=== PATIENT | male | born 1970 | race Caucasian/White ===

== ENCOUNTER 2016-06-23 03:29 | Emergency (ER) | payer SELFPAY ==
[~2016-06-23] VITALS: Ht 180.3 cm; Wt 103.0 kg
[~2016-06-23 03:29] MED LIST: ABACAVIR-LAMIV1 EACH PO; BACTRIM DS 8001 TA1 PO; HYDROCODONE BIT1 T11 PO; HYDROXYZINE PAM25 M1 PO; LOSARTAN POTAS100 M1 PO; LOSARTAN POTAS100 MG PO; NATURE'S BLEND F1 MG PO; OMEPRAZOLE20 M2 PO; Orphenadrine C100 MG PO; ULTRAM50 MG PO; VITAMIN B-11 TAB PO; VOLTAREN50 M1 PO
[2016-06-23 04:18] LABS: BASO # 0.1 10*3/uL (0.0-0.1); BASO % 0.6 % (0.0-1.0); EOS # 0.1 10*3/uL (0.0-0.4); EOS % 0.9 % (1.0-4.0); HEMATOCRIT 45.9 % (42.0-52.0); HEMOGLOBIN 14.7 g/dl (14.0-18.0); LYMPH # 2.2 10*3/uL (1.3-4.4); LYMPH % 28.5 % (27.0-41.0); MEAN CELL VOLUME 83.9 fl (80.0-94.0); MEAN CORPUSCULAR HGB 26.9 pg (27.0-31.0); MEAN PLATELET VOLUME 9.6 fl (9.6-12.3); MONO % 12.1 % (3.0-9.0); NEUT # 4.5 10*3/uL (2.3-7.9); NEUT % 57.6 % (47.0-73.0); PLATELET COUNT AUTOMATED 244 10*3/uL (130-400); RED BLOOD COUNT 5.47 10*6/uL (4.50-5.90); RED CELL DISTRI WIDTH 17.7 % (0-14.5); WHITE BLOOD COUNT 7.8 10*3/uL (4.8-10.8)
[2016-06-23 04:28] LABS: BUN 11 mg/dl (7-24); CARBON DIOXIDE 26 mmol/L (21-32); CHLORIDE 108 mmol/L (98-107); EST GLOM FILT AFRICAN AMERICAN > 60 ml/min; GLUCOSE 113 mg/dL (65-99); POTASSIUM 3.8 mmol/L (3.5-5.1); SODIUM 146 mmol/L (136-145)
== END 2016-06-23 05:12 | disposition left against medical advice (07) ==
LOC: ED 03:29
PROVIDERS: Emergency Medicine
DX: R06.02 Shortness of breath (principal); R05 Cough; F17.200 Nicotine dependence, unspecified, uncomplicated; G89.29 Other chronic pain; M54.5 Low back pain; I10 Essential (primary) hypertension; E78.00 Pure hypercholesterolemia, unspecified; F20.9 Schizophrenia, unspecified; Z88.8 Allergy status to other drugs, medicaments and biological substances

== ENCOUNTER 2016-10-22 20:38 | Inpatient (IN) | payer OTHER ==
[~2016-10-22] VITALS: Ht 182.8 cm; Wt 117.1 kg
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
[2016-10-22 00:20] VITALS: BP 115/56
[2016-10-22 20:46] VITALS: BP 151/93
[2016-10-22 21:24] LABS: BASO # 0.1 10*3/uL (0.0-0.1); BASO % 1.4 % (0.0-1.0); EOS # 0.1 10*3/uL (0.0-0.4); EOS % 2.5 % (1.0-4.0); HEMATOCRIT 39.2 % (42.0-52.0); HEMOGLOBIN 12.8 g/dl (14.0-18.0); LYMPH # 2.7 10*3/uL (1.3-4.4); MEAN CELL VOLUME 86.2 fl (80.0-94.0); MEAN CORPUSCULAR HGB 28.1 pg (27.0-31.0); MEAN CORPUSCULAR HGB CONC 32.7 g/dl (33.0-37.0); MONO # 0.8 10*3/uL (0.1-1.0); MONO % 14.3 % (3.0-9.0); NEUT % 34.4 % (47.0-73.0); PLATELET COUNT AUTOMATED 168 10*3/uL (130-400); RED BLOOD COUNT 4.55 10*6/uL (4.50-5.90); RED CELL DISTRI WIDTH 17.3 % (0-14.5); WHITE BLOOD COUNT 5.7 10*3/uL (4.8-10.8)
[2016-10-22 21:39] LABS: ALBUMIN 3.8 gm/dl (3.1-4.5); ALKALINE PHOSPHATASE 86 U/L (45-117); BILIRUBIN, TOTAL 0.3 mg/dl (0.2-1.0); BUN 8 mg/dl (7-24); CARBON DIOXIDE 27 mmol/L (21-32); CHLORIDE 107 mmol/L (98-107); EST GLOM FILT AFRICAN AMERICAN > 60 ml/min; GLUCOSE 107 mg/dL (65-99); MAGNESIUM 2.3 mg/dL (1.5-2.1); POTASSIUM 3.8 mmol/L (3.5-5.1); PROTHROMBIN TIME 10.1 SECONDS (9.0-12.4); SGOT/AST 206 IU/L (3-35); SGPT/ALT 155 U/L (12-78); SODIUM 145 mmol/L (136-145); TOTAL PROTEIN 8.1 gm/dL (6.4-8.2)
[2016-10-23] VITALS (7 sets, daily range): BP systolic 114–160; BP diastolic 70–102
[2016-10-23 00:35] LABS: CKMB 1.2 ng/ml (0.5-3.6); CPK 246 U/L (39-308)
[2016-10-23 00:36] LABS: TROPONIN I < 0.015 ng/ml (<0.045)
[2016-10-23 06:09] LABS: HEMATOCRIT 38.3 % (42.0-52.0); HEMOGLOBIN 12.2 g/dl (14.0-18.0); MEAN CELL VOLUME 88.5 fl (80.0-94.0); MEAN CORPUSCULAR HGB 28.2 pg (27.0-31.0); MEAN CORPUSCULAR HGB CONC 31.9 g/dl (33.0-37.0); PLATELET COUNT AUTOMATED 146 10*3/uL (130-400); RED BLOOD COUNT 4.33 10*6/uL (4.50-5.90); RED CELL DISTRI WIDTH 17.4 % (0-14.5); WHITE BLOOD COUNT 3.8 10*3/uL (4.8-10.8)
[2016-10-23 06:18] LABS: CKMB 0.9 ng/ml (0.5-3.6); CPK 244 U/L (39-308)
[2016-10-23 06:19] LABS: TROPONIN I < 0.015 ng/ml (<0.045)
[2016-10-23 06:20] LABS: HEMOGLOBIN A1c 5.3 % (4.8-5.6)
[2016-10-23 06:22] LABS: CHLORIDE 112 mmol/L (98-107); POTASSIUM 3.9 mmol/L (3.5-5.1); SODIUM 148 mmol/L (136-145)
[2016-10-23 06:30] LABS: PROTHROMBIN TIME 10.7 SECONDS (9.0-12.4)
[2016-10-23 06:33] LABS: ATYPICAL LYMPHS 1 % (0-0); BASOPHIL # 0.1 10*3/uL (0-0.1); BASOPHILS 3 % (0-1); EOSINOPHILS 1 % (1-4); LYMPHOCYTE # 1.9 10*3/uL (1.3-4.4); MONOCYTE # 0.4 10*3/uL (0.1-1.0); NEUTROPHIL # 1.3 10*3/uL (2.3-7.9); NEUTROPHILS 34 % (47-73); TOTAL CELLS COUNTED 100 #CELLS
[2016-10-23 06:34] LABS: BUN 8 mg/dl (7-24); CARBON DIOXIDE 26 mmol/L (21-32); CHOLESTEROL 203 mg/dL (<200); EST GLOM FILT AFRICAN AMERICAN > 60 ml/min; GLUCOSE 84 mg/dL (65-99); HDL CHOLESTEROL 41 mg/dl (40-60); LDL CHOLESTEROL 98 mg/dL (9-159); MAGNESIUM 2.3 mg/dL (1.5-2.1); PHOSPHOROUS 3.7 mg/dL (2.5-4.9); PLATELET SUFFICIENCY NORMAL (NORMAL); TRIGLYCERIDES 322 mg/dl (<150); VLDL CHOLESTEROL 64 mg/dL (6-40)
[2016-10-23 07:11] LABS: FOLIC ACID > 24.00 ng/mL (>5.38)
[2016-10-23 12:47] LABS: CKMB 0.8 ng/ml (0.5-3.6); CPK 263 U/L (39-308); TROPONIN I < 0.015 ng/ml (<0.045)
[2016-10-23 20:00] LABS: BILIRUBIN NEGATIVE (NEGATIVE); BLOOD NEGATIVE (NEGATIVE); CLARITY SL CLOUDY (CLEAR); COLOR YELLOW (YELLOW); GLUCOSE NEGATIVE (NEGATIVE); KETONE NEGATIVE (NEGATIVE); LEUKO ESTERASE NEGATIVE (NEGATIVE); NITRITE NEGATIVE (NEGATIVE); PH 6.5 (5.0-9.0); PROTEIN NEGATIVE (NEGATIVE); SPECIFIC GRAVITY <= 1.005 (1.005-1.030); UROBILINOGEN 0.2 E.U./dl (0.2-1.0)
[2016-10-23 20:08] LABS: URINE AMPHETAMINES < 1000 (1000ng/ml); URINE BARBITURATES < 200 (200ng/ml); URINE COCAINE < 300 (300ng/ml)
[2016-10-23 20:14] LABS: EPITHELIAL CELLS 0-2; RBC 0-2 rbc/hpf (0-2); WBC 0-2 wbc/hpf (0-5)
[2016-10-23 20:18] LABS: BACTERIA 1+; URINE REFLEX COMMENT NO (NO)
[2016-10-24] VITALS: BP 150/100
[2016-10-24 04:00] VITALS: BP 150/90
[2016-10-24 08:00] VITALS: BP 157/100
[2016-10-24 12:00] VITALS: BP 151/107
[2016-10-24 16:00] VITALS: BP 134/101
[2016-10-25] VITALS: BP 130/60; BP 145/101
[2016-10-25 06:58] LABS: EOS # 0.2 10*3/uL (0.0-0.4); EOS % 4.3 % (1.0-4.0); HEMATOCRIT 39.4 % (42.0-52.0); HEMOGLOBIN 12.7 g/dl (14.0-18.0); LYMPH # 1.2 10*3/uL (1.3-4.4); MEAN CELL VOLUME 87.8 fl (80.0-94.0); MEAN CORPUSCULAR HGB 28.3 pg (27.0-31.0); MEAN CORPUSCULAR HGB CONC 32.2 g/dl (33.0-37.0); MEAN PLATELET VOLUME 9.4 fl (9.6-12.3); MONO # 0.5 10*3/uL (0.1-1.0); MONO % 11.7 % (3.0-9.0); NEUT # 2.3 10*3/uL (2.3-7.9); NEUT % 54.8 % (47.0-73.0); PLATELET COUNT AUTOMATED 135 10*3/uL (130-400); RED BLOOD COUNT 4.49 10*6/uL (4.50-5.90); RED CELL DISTRI WIDTH 16.4 % (0-14.5); WHITE BLOOD COUNT 4.2 10*3/uL (4.8-10.8)
[2016-10-25 07:29] LABS: ALBUMIN 3.4 gm/dl (3.1-4.5); ALKALINE PHOSPHATASE 86 U/L (45-117); BILIRUBIN, TOTAL 0.4 mg/dl (0.2-1.0); BUN 14 mg/dl (7-24); CARBON DIOXIDE 25 mmol/L (21-32); CHLORIDE 104 mmol/L (98-107); EST GLOM FILT AFRICAN AMERICAN > 60 ml/min; GLUCOSE 95 mg/dL (65-99); POTASSIUM 3.9 mmol/L (3.5-5.1); SGOT/AST 155 IU/L (3-35); SGPT/ALT 140 U/L (12-78); SODIUM 139 mmol/L (136-145); TOTAL PROTEIN 7.6 gm/dL (6.4-8.2)
[2016-10-25 08:00] VITALS: BP 149/99
[2016-10-25] MEDS ORDERED: THERA TABS1 TAB PO (10:44)
[2016-10-25] MEDS ORDERED: VITAMIN B-11 TAB PO (10:44)
[2016-10-25] MEDS ORDERED: NATURE'S BLEND F1 MG PO (10:44)
[2016-10-25] MEDS ORDERED: D-1000 185 MG-11 TAB PO (10:44)
[2016-10-25 12:00] VITALS: BP 137/88
[2016-10-25 16:00] VITALS: BP 142/100
[2016-10-25 20:00] VITALS: BP 133/91
[2016-10-26] VITALS: BP 127/90
[2016-10-26 08:00] VITALS: BP 150/88
[2016-10-26 12:00] VITALS: BP 142/83
[2016-10-26] MEDS ORDERED: ATARAX,VISTARIL50 MG PO (12:03)
[2016-10-26] MEDS ORDERED: ULTRAM50 MG PO (12:05)
== END 2016-10-26 12:33 | disposition home or self-care (01) | DRG 896 ==
LOC: ED 20:38 → 5E 22:53 → EDHOLD 22:53 → 5E 23:20
PROVIDERS: Emergency Medicine Emergency Medical Services; Internal Medicine Hospice and Palliative Medicine; Student in an Organized Health Care Education/Training Program
PROC: 3E0U33Z Introduction of Anti-inflammatory into Joints, Percutaneous Approach (ICD-10-PCS; principal; 2016-10-25)
DX: F10.120 Alcohol abuse with intoxication, uncomplicated (principal); E43 Unspecified severe protein-calorie malnutrition; E87.0 Hyperosmolality and hypernatremia; F33.9 Major depressive disorder, recurrent, unspecified; M25.561 Pain in right knee; K70.10 Alcoholic hepatitis without ascites; E83.41 Hypermagnesemia; E83.51 Hypocalcemia; M54.5 Low back pain; E55.9 Vitamin D deficiency, unspecified; R74.0 Nonspecific elevation of levels of transaminase and lactic acid dehydrogenase [LDH]; D64.9 Anemia, unspecified; R00.0 Tachycardia, unspecified; Y90.8 Blood alcohol level of 240 mg/100 ml or more; D72.819 Decreased white blood cell count, unspecified; I10 Essential (primary) hypertension; F20.9 Schizophrenia, unspecified; E78.00 Pure hypercholesterolemia, unspecified; F17.210 Nicotine dependence, cigarettes, uncomplicated; E78.1 Pure hyperglyceridemia; E66.09 Other obesity due to excess calories; Z87.81 Personal history of (healed) traumatic fracture; S89.91XD Unspecified injury of right lower leg, subsequent encounter; Z68.30 Body mass index [BMI] 30.0-30.9, adult

== ENCOUNTER 2016-10-27 01:14 | Emergency (ER) | payer OTHER ==
[~2016-10-27] VITALS: Ht 180.3 cm; Wt 105.7 kg
[~2016-10-27 01:14] MED LIST changes: +ATARAX,VISTARIL50 MG PO; +D-1000 185 MG-11 TAB PO; +THERA TABS1 TAB PO
== END 2016-10-27 02:45 | disposition home or self-care (01) ==
LOC: ED 01:14
DX: S01.112A Laceration without foreign body of left eyelid and periocular area, initial encounter (principal); S01.412A Laceration without foreign body of left cheek and temporomandibular area, initial encounter; S01.01XA Laceration without foreign body of scalp, initial encounter; F17.200 Nicotine dependence, unspecified, uncomplicated; I10 Essential (primary) hypertension; V99.XXXA Unspecified transport accident, initial encounter; Y93.89 Activity, other specified; Y92.59 Other trade areas as the place of occurrence of the external cause; Y99.0 Civilian activity done for income or pay

== ENCOUNTER 2017-01-08 23:11 | Emergency (ER) | payer OTHER ==
[~2017-01-08] VITALS: Ht 180.3 cm; Wt 104.3 kg
[2017-01-09] MEDS ORDERED: NAPROSYN500 MG PO (00:23)
[2017-01-09] MEDS ORDERED: HYDROCODONE BIT1 T11 PO (00:23)
== END 2017-01-09 01:04 | disposition home or self-care (01) ==
LOC: ED 23:11
DX: M19.071 Primary osteoarthritis, right ankle and foot (principal); I10 Essential (primary) hypertension; E66.9 Obesity, unspecified; F17.200 Nicotine dependence, unspecified, uncomplicated; Z98.890 Other specified postprocedural states; Z79.899 Other long term (current) drug therapy

== ENCOUNTER 2017-02-01 12:03 | Emergency (ER) | payer OTHER ==
[~2017-02-01] VITALS: Ht 180.3 cm; Wt 107.0 kg
[~2017-02-01 12:03] MED LIST changes: +NAPROSYN500 MG PO
[2017-02-01] MEDS ORDERED: 'PARAFON FORTE500 M1 PO (13:01)
== END 2017-02-01 14:12 | disposition home or self-care (01) ==
LOC: ED 12:03
DX: S39.013A Strain of muscle, fascia and tendon of pelvis, initial encounter (principal); I10 Essential (primary) hypertension; E78.00 Pure hypercholesterolemia, unspecified; F17.200 Nicotine dependence, unspecified, uncomplicated; Z79.899 Other long term (current) drug therapy; W18.40XA Slipping, tripping and stumbling without falling, unspecified, initial encounter; Y93.89 Activity, other specified; Y92.89 Other specified places as the place of occurrence of the external cause; Y99.8 Other external cause status

== ENCOUNTER 2017-02-09 12:52 | Emergency (ER) | payer OTHER ==
[~2017-02-09] VITALS: Ht 180.3 cm; Wt 108.0 kg
[~2017-02-09 12:52] MED LIST changes: +'PARAFON FORTE500 M1 PO
[2017-02-09] MEDS ORDERED: toradol PO (13:21)
== END 2017-02-09 14:38 | disposition home or self-care (01) ==
LOC: ED 12:52
DX: G89.18 Other acute postprocedural pain (principal); R03.0 Elevated blood-pressure reading, without diagnosis of hypertension; F17.200 Nicotine dependence, unspecified, uncomplicated; Z79.899 Other long term (current) drug therapy

== ENCOUNTER 2017-02-16 00:37 | Emergency (ER) | payer OTHER ==
[~2017-02-16 00:37] MED LIST changes: +toradol PO
== END 2017-02-16 03:30 | disposition short-term general hospital (02) ==
LOC: ED 00:37
DX: S62.394A Other fracture of fourth metacarpal bone, right hand, initial encounter for closed fracture (principal); I10 Essential (primary) hypertension; E78.2 Mixed hyperlipidemia; F17.200 Nicotine dependence, unspecified, uncomplicated; X58.XXXA Exposure to other specified factors, initial encounter; Y93.89 Activity, other specified; Y92.89 Other specified places as the place of occurrence of the external cause; Y99.8 Other external cause status

== ENCOUNTER 2017-03-15 11:10 | Emergency (ER) | payer OTHER ==
[~2017-03-15] VITALS: Ht 180.3 cm; Wt 108.0 kg
[2017-03-15 11:51] LABS: BASO # 0.1 10*3/uL (0.0-0.1); EOS # 0.2 10*3/uL (0.0-0.4); EOS % 2.5 % (1.0-4.0); HEMATOCRIT 44.6 % (42.0-52.0); HEMOGLOBIN 14.7 g/dl (14.0-18.0); LYMPH # 2.1 10*3/uL (1.3-4.4); LYMPH % 34.2 % (27.0-41.0); MEAN CELL VOLUME 88.1 fl (80.0-94.0); MEAN CORPUSCULAR HGB 29.1 pg (27.0-31.0); MEAN PLATELET VOLUME 9.9 fl (9.6-12.3); MONO # 0.7 10*3/uL (0.1-1.0); MONO % 11.3 % (3.0-9.0); NEUT # 3.1 10*3/uL (2.3-7.9); NEUT % 50.7 % (47.0-73.0); PLATELET COUNT AUTOMATED 194 10*3/uL (130-400); RED BLOOD COUNT 5.06 10*6/uL (4.50-5.90); RED CELL DISTRI WIDTH 16.8 % (0-14.5); WHITE BLOOD COUNT 6.1 10*3/uL (4.8-10.8)
[2017-03-15 12:12] LABS: ALBUMIN 3.6 gm/dl (3.1-4.5); ALKALINE PHOSPHATASE 102 U/L (45-117); BUN 10 mg/dl (7-24); CHLORIDE 110 mmol/L (98-107); CREATININE 0.77 mg/dL (0.70-1.30); POTASSIUM 3.9 mmol/L (3.5-5.1); SGOT/AST 189 IU/L (3-35); SGPT/ALT 230 U/L (12-78); SODIUM 142 mmol/L (136-145)
[2017-03-15 13:21] LABS: BILIRUBIN NEGATIVE (NEGATIVE); BLOOD NEGATIVE (NEGATIVE); CLARITY CLEAR (CLEAR); COLOR YELLOW (YELLOW); GLUCOSE NEGATIVE (NEGATIVE); KETONE NEGATIVE (NEGATIVE); LEUKO ESTERASE NEGATIVE (NEGATIVE); NITRITE NEGATIVE (NEGATIVE); SPECIFIC GRAVITY <= 1.005 (1.005-1.030); UROBILINOGEN 0.2 E.U./dl (0.2-1.0)
[2017-03-15 13:30] LABS: URINE AMPHETAMINES < 1000 (1000ng/ml); URINE BARBITURATES < 200 (200ng/ml); URINE BENZODIAZEPINES < 200 (200ng/ml); URINE CANNABINOIDS (THC) < 50 (50ng/ml); URINE COCAINE < 300 (300ng/ml); URINE METHADONE < 300 (300ng/ml); URINE OPIATES < 300 (300ng/ml); URINE PHENCYCLIDINE < 25 (25ng/ml)
[2017-03-15] MEDS ORDERED: KEPPRA500 MG PO (13:33)
== END 2017-03-15 15:51 | disposition left against medical advice (07) ==
LOC: ED 11:10
PROVIDERS: Emergency Medicine
DX: G40.909 Epilepsy, unspecified, not intractable, without status epilepticus (principal); F10.229 Alcohol dependence with intoxication, unspecified; G89.29 Other chronic pain; M25.561 Pain in right knee; E83.51 Hypocalcemia; K70.9 Alcoholic liver disease, unspecified; I10 Essential (primary) hypertension; E78.00 Pure hypercholesterolemia, unspecified; F17.200 Nicotine dependence, unspecified, uncomplicated

== ENCOUNTER → 2017-03-20 | Outpatient (CLI) | payer OTHER ==
[~2017-03-20] MED LIST changes: +KEPPRA500 MG PO; +LISINOPRIL20 MG PO; +Motrin,Rufen800 MG PO; +PERCOCET 5-3251 EACH PO
== END | disposition home or self-care (01) ==
LOC: ORTHO 01:00
DX: S62.316D Displaced fracture of base of fifth metacarpal bone, right hand, subsequent encounter for fracture with routine healing (principal); X58.XXXD Exposure to other specified factors, subsequent encounter

== ENCOUNTER 2017-03-21 21:19 | Inpatient (IN) | payer OTHER ==
[~2017-03-21] VITALS: Ht 180.3 cm; Wt 111.2 kg
[2017-03-21] VITALS (7 sets, daily range): BP systolic 135–159; BP diastolic 88–102
[~2017-03-21 21:19] MED LIST changes: -LISINOPRIL20 MG PO; -Motrin,Rufen800 MG PO; -PERCOCET 5-3251 EACH PO
[2017-03-21 22:06] LABS: BASO # 0.1 10*3/uL (0.0-0.1); BASO % 1.1 % (0.0-1.0); EOS # 0.2 10*3/uL (0.0-0.4); EOS % 2.2 % (1.0-4.0); HEMATOCRIT 44.2 % (42.0-52.0); HEMOGLOBIN 14.6 g/dl (14.0-18.0); LYMPH # 2.4 10*3/uL (1.3-4.4); MEAN CELL VOLUME 87.2 fl (80.0-94.0); MEAN CORPUSCULAR HGB 28.8 pg (27.0-31.0); MEAN PLATELET VOLUME 9.3 fl (9.6-12.3); MONO # 0.9 10*3/uL (0.1-1.0); NEUT # 3.7 10*3/uL (2.3-7.9); NEUT % 50.4 % (47.0-73.0); PLATELET COUNT AUTOMATED 204 10*3/uL (130-400); RED BLOOD COUNT 5.07 10*6/uL (4.50-5.90); RED CELL DISTRI WIDTH 17.5 % (0-14.5); WHITE BLOOD COUNT 7.3 10*3/uL (4.8-10.8)
[2017-03-21 22:21] LABS: ALBUMIN 3.7 gm/dl (3.1-4.5); ALKALINE PHOSPHATASE 97 U/L (45-117); BUN 8 mg/dl (7-24); CHLORIDE 105 mmol/L (98-107); CREATININE 0.79 mg/dL (0.70-1.30); POTASSIUM 3.3 mmol/L (3.5-5.1); SGOT/AST 283 IU/L (3-35); SGPT/ALT 280 U/L (12-78); SODIUM 140 mmol/L (136-145); TOTAL PROTEIN 8.2 gm/dL (6.4-8.2)
[2017-03-21 22:22] LABS: BILIRUBIN NEGATIVE (NEGATIVE); BLOOD NEGATIVE (NEGATIVE); CLARITY CLEAR (CLEAR); COLOR YELLOW (YELLOW); GLUCOSE NEGATIVE (NEGATIVE); KETONE NEGATIVE (NEGATIVE); LEUKO ESTERASE NEGATIVE (NEGATIVE); NITRITE NEGATIVE (NEGATIVE); SPECIFIC GRAVITY <= 1.005 (1.005-1.030); UROBILINOGEN 0.2 E.U./dl (0.2-1.0)
[2017-03-21 22:26] LABS: ACETAMINOPHEN (TYLENOL) < 2.0 ug/ml (10-30)
[2017-03-21 22:30] LABS: BACTERIA TRACE; EPITHELIAL CELLS 0-3
[2017-03-21 22:31] LABS: URINE AMPHETAMINES < 1000 (1000ng/ml); URINE BARBITURATES < 200 (200ng/ml); URINE BENZODIAZEPINES < 200 (200ng/ml); URINE CANNABINOIDS (THC) < 50 (50ng/ml); URINE COCAINE < 300 (300ng/ml); URINE METHADONE < 300 (300ng/ml); URINE OPIATES < 300 (300ng/ml)
[2017-03-21 22:32] LABS: URINE PHENCYCLIDINE < 25 (25ng/ml)
[2017-03-22] VITALS (8 sets, daily range): BP systolic 100–158; BP diastolic 65–120
--- NOTE | 2017-03-22 00:35 | NUR ---
PATIENT REPORTS SOME RELIEF FROM HIS PAIN AND THAT HE IS MUCH CALMER.
--- NOTE | 2017-03-22 00:40 | NUR ---
A 46, admitted to ICCU, under the services of NATHALIA Ayoub DO with a diagnosis of ALCOHOL INTOXICATION. Chief complaint is R KNEE PAIN. Patient arrived via stretcher from ER. Monitor applied. Initial assessment completed. Vital signs taken and recorded. NATHALIA AYOUB DO notified of admission to the unit. Orders received. See assessment for past medical history, medications and allergies. Patient and/or family oriented to unit. [facility] ICCU visitation policy reviewed. Clothing/patient valuable form completed. MITCHEL WRAY
--- NOTE | 2017-03-22 01:22 | NUR ---
MEDICATED WITH PRN ROBAXIN AND VISTARIL PER ORDERS.
--- NOTE | 2017-03-22 01:40 | NUR ---
MEDICATED WITH IV LABETOLOL.
--- NOTE | 2017-03-22 01:52 | NUR ---
MEDICATED WITH PRN TRAZADONE.
--- NOTE | 2017-03-22 03:00 | NUR ---
LABETOLOL,TRAZADONE,ROBAXIN,VISTARIL EFFECTIVE. BP 113/81. PATIENT SLEEPING.
--- NOTE | 2017-03-22 04:36 | NUR ---
MEDICATED WITH PRN TORODOL PER ORDER AND REQUEST FOR C/O R KNEE PAIN.
--- NOTE | 2017-03-22 09:23 | NUR ---
Awake and alert, 0917 Medicated for c/o pain to Right knee scale 9/10. AM meds given . Sidelying and co-operative no s/s of withdrawl noted.
--- NOTE | 2017-03-22 11:09 | NUR ---
States pain has eased but is still present. Informed that IV med was available. Stated that he was OK for now.
--- NOTE | 2017-03-22 13:46 | NUR ---
Dr. Burr in to [facility]. Ordered tordol dose for now. Offered to pt. who stated he would take it later. Transferred to [facility] via bed. Familyin and aware of transfer.
--- NOTE | 2017-03-22 14:40 | NUR ---
PATIENT WAS GIVEN IV TORODOL AND ROBAXON PER PATIENT COMPLAINT OF KNEE PAIN RATED AN 8/10 ON THE PAIN SCALE. WILL CONTINUE TO MONITOR AND RE-EVALUATE.
--- NOTE | 2017-03-22 15:00 | NUR ---
PAIN MEDICATION HAS BEEN EFFECTIVE EVIDENCE BY PATIENT VERBALIZING A PAIN LEVEL OF 3/10. PATIENT IS NOW RESTING COMFORTABLY IN BED. WILL CONTINUE TO MONITOR.
--- NOTE | 2017-03-22 19:50 | NUR ---
PT. AWAKE, ALERT AND ORIENTED X 3 UPON ENTERING ROOM. PT. HX. OF SEIZURES WITH SEIZURE PRECAUTIONS AND PADDED RAILS ORDERED. PADDED RAILS IN PLACE WITH PADDED TONGUE BLADE AT BEDSIDE. PT. C/O RT. KNEE PAIN 10/10 UNRELIEVED BY PREVIOUS MEDICATION FOR PAIN. CALL LIGHT WITHIN REACH, BED IN LOWEST POSITION, WHEELS LOCKED. SEE SHIFT ASSESSMENT.
--- NOTE | 2017-03-22 20:00 | NUR ---
SPOKE WITH DR. GONZALEZ AT THIS TIME IN REGARDS TO PTS. REQUEST FOR PAIN MEDICATION FOR RT. KNEE PAIN 03/25 THAT IS UNRELIEVED BY CURRENT TREATMENT. DR. GONZALEZ STATED TO PUT IN AN ORDER FOR MORPHINE 4MG Q4HR PRN.
--- NOTE | 2017-03-22 20:25 | NUR ---
PT. GIVEN MORPHINE 4 MG AT THIS TIME. PT. ADVISED TO USE CALL LIGHT FOR ANY ADVERSE REACTION. WILL MONITOR EFFECTIVENESS.
--- NOTE | 2017-03-22 21:38 | NUR ---
PT. RE-ASSESSED FOR EFFECTIVENESS OF MORPHINE. PT. STATED PAIN OF 4/10, BUT NOTED IT WORKED BETTER THAN PREVIOUS MEDICATION.
[2017-03-23] VITALS: BP 127/77
--- NOTE | 2017-03-23 00:42 | NUR ---
PT. GIVEN MORPHINE AT THIS TIME FOR PAIN 01/23. PT. STATED INITIAL DOSE OF MORPHINE HELPED WITH PAIN, AND HE WAS ABLE TO SLEEP FOR 3-4 HOURS. WILL MONITOR EFFECTIVENESS.
--- NOTE | 2017-03-23 01:30 | NUR ---
PT. RE-EVALUATED FOR EFFECTIVENESS OF MORPHINE. PT. SLEEPING, RESPIRATIONS EASY, REGULAR, NO-DISTRESS.
[2017-03-23 06:17] LABS: EOS # 0.2 10*3/uL (0.0-0.4); EOS % 3.6 % (1.0-4.0); HEMATOCRIT 41.9 % (42.0-52.0); HEMOGLOBIN 13.5 g/dl (14.0-18.0); LYMPH # 1.1 10*3/uL (1.3-4.4); LYMPH % 27.2 % (27.0-41.0); MEAN CELL VOLUME 89.1 fl (80.0-94.0); MEAN CORPUSCULAR HGB 28.7 pg (27.0-31.0); MEAN CORPUSCULAR HGB CONC 32.2 g/dl (33.0-37.0); MEAN PLATELET VOLUME 10.3 fl (9.6-12.3); MONO # 0.4 10*3/uL (0.1-1.0); MONO % 10.1 % (3.0-9.0); NEUT # 2.4 10*3/uL (2.3-7.9); NEUT % 57.6 % (47.0-73.0); RED CELL DISTRI WIDTH 17.2 % (0-14.5); WHITE BLOOD COUNT 4.2 10*3/uL (4.8-10.8)
[2017-03-23 06:26] LABS: BUN 9 mg/dl (7-24); CHLORIDE 108 mmol/L (98-107); MAGNESIUM 1.7 mg/dL (1.5-2.1); POTASSIUM 3.8 mmol/L (3.5-5.1); SGOT/AST 200 IU/L (3-35); SGPT/ALT 214 U/L (12-78); SODIUM 140 mmol/L (136-145)
[2017-03-23 06:35] LABS: PLATELET COUNT AUTOMATED 142 10*3/uL (130-400)
[2017-03-23 06:37] LABS: ALKALINE PHOSPHATASE 86 U/L (45-117); PHOSPHOROUS 3.7 mg/dL (2.5-4.9); TOTAL PROTEIN 6.8 gm/dL (6.4-8.2)
[2017-03-23 12:00] VITALS: BP 138/92
[2017-03-23 16:00] VITALS: BP 140/92
[2017-03-23 20:00] VITALS: BP 124/87
--- NOTE | 2017-03-23 21:53 | NUR ---
PATIENT HAS COMPLAINT OF RT KNEE PAIN RATES 10/10. MORPHINE GIVEN. WILL REASSESS.
--- NOTE | 2017-03-23 23:30 | NUR ---
Medicated with Trazodone po prn for help with sleep. Will monitor effectiveness. Call light within reach.
[2017-03-24] VITALS: BP 133/88
--- NOTE | 2017-03-24 00:24 | NUR ---
Patient resting quietly in bed with eyes closed. Trazodone effective. Will continue to monitor. Call light within reach.
--- NOTE | 2017-03-24 00:47 | NUR ---
24 HR chart check completed.
--- NOTE | 2017-03-24 04:01 | NUR ---
Medicated with Morphine IV prn for knee pain rating 10/10. Will monitor effectiveness. Call light within reach.
--- NOTE | 2017-03-24 05:00 | NUR ---
Patient resting quietly in bed with eyes closed. Morphine effective. Will continue to monitor. Call light within reach. M
[2017-03-24 06:57] LABS: SGOT/AST 200 IU/L (3-35); SGPT/ALT 220 U/L (12-78)
[2017-03-24 08:00] VITALS: BP 138/76
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
[2017-03-24 12:00] VITALS: BP 114/57
--- NOTE | 2017-03-24 14:48 | NUR ---
SETTER MACHINE SPOKE WITH PATIENT. PATIENT STATED THAT HE HAS SLOWED DOWN ON HIS DRINKING. PATIENT WAS REFERRED TO AA MEETINGS. OSBALDO TRINIDAD B.A. SETTER MACHINE
[2017-03-24 16:00] VITALS: BP 104/68
--- NOTE | 2017-03-24 18:28 | NUR ---
Patient resting quietly with no c/o discomfort. Respirations easy and regular. Vital signs stable. No overt distress. LEONCIO ANTONIO R
--- NOTE | 2017-03-24 19:30 | NUR ---
ASSUMED CARE OF PT AT THIS TIME, RESPS EASY AND NONLABORED WITH NO S/S OF DISTRESS, CALL LIGHT WITH IN REACH
[2017-03-24 20:00] VITALS: BP 117/76
[2017-03-25] VITALS: BP 122/77
--- NOTE | 2017-03-25 05:17 | NUR ---
PT REPORTS PAIN IN THE RIGHT KNEE REQUESTING AND ADMINSITERED MORPHINE 4MG IV PRN ORDERED, RATES PAIN 8/10, WILL MONITOR EFFECTS
[2017-03-25 05:57] LABS: BASO % 0.7 % (0.0-1.0); EOS # 0.2 10*3/uL (0.0-0.4); EOS % 3.9 % (1.0-4.0); HEMATOCRIT 43.5 % (42.0-52.0); HEMOGLOBIN 14.3 g/dl (14.0-18.0); LYMPH # 1.7 10*3/uL (1.3-4.4); LYMPH % 28.9 % (27.0-41.0); MEAN CELL VOLUME 89.7 fl (80.0-94.0); MEAN CORPUSCULAR HGB 29.5 pg (27.0-31.0); MEAN CORPUSCULAR HGB CONC 32.9 g/dl (33.0-37.0); MEAN PLATELET VOLUME 10.4 fl (9.6-12.3); MONO # 0.8 10*3/uL (0.1-1.0); NEUT % 51.8 % (47.0-73.0); PLATELET COUNT AUTOMATED 149 10*3/uL (130-400); RED BLOOD COUNT 4.85 10*6/uL (4.50-5.90); WHITE BLOOD COUNT 5.9 10*3/uL (4.8-10.8)
[2017-03-25 06:07] LABS: BUN 12 mg/dl (7-24); CHLORIDE 103 mmol/L (98-107); CREATININE 0.74 mg/dL (0.70-1.30); POTASSIUM 3.8 mmol/L (3.5-5.1); SODIUM 138 mmol/L (136-145)
--- NOTE | 2017-03-25 06:07 | NUR ---
PT REPORTS DECREASED PAIN LEVEL AT THIS TIME, PRN MORPHINE EFFECTIVE RATES PAIN 4/10
[2017-03-25 08:00] VITALS: BP 126/81
--- NOTE | 2017-03-25 08:00 | NUR ---
IN BED RESTING QUIETLY. AWAKENS TO VOICE. NO S/S OF DISTRESS. WILL CONT TO MONITOR. CALL LIGHT IN REACH. SEE ASSESS.
--- NOTE | 2017-03-25 09:50 | NUR ---
MORPHINE GIVEN FOR C/O PAIN OF 10/10 TO RIGHT KNEE. WILL CONT TO MONITOR. CALL LIGHT IN REACH.
--- NOTE | 2017-03-25 10:22 | NUR ---
KNEE IMMOBILIZER APPLIED ORDERED TO RIGHT KNEE.
--- NOTE | 2017-03-25 10:29 | NUR ---
PHYSICAL THERAPY Therapy in this AM and Mr Forrester wanting his pain meds first. He ask if i could come back around 12:00 noon today. BRENTON MOE IMAGING TECHNICIAN.
--- NOTE | 2017-03-25 10:50 | NUR ---
IV MORPHINE EFF AT THIS TIME PER PT. WILL CONT TO MONITOR. CALL LIGHT IN REACH.
--- NOTE | 2017-03-25 12:14 | NUR ---
PHYSICAL THERAPY Mr Forrester seen this PM 1:1 for his therapy session, Pt was supine in bed. I ask if he was doing his right leg Ex and he said that it was to painful and he's not doing them. All transfers were supervision X 1, no LOB. Gait with just one crutch on Pt's right side, said thats the best for him. Pt is WBAT right LE. Gait total 80' X 1, supervision X 1, and verbal cues for Syd to slow down his gait for his gait safety that he gaits to fast for his safety, lincoln thinking he is going to do what he wants to do. Pt back supine in bed, call light and phone, and said that he does not have MRSA why the mask. BRENTON MOE MECHANICAL DESIGN ENGINEER [employer]ODUCTS.
--- NOTE | 2017-03-25 13:05 | NUR ---
IV MORPHINE EFF FOR RIGHT KNEE PAIN PER PT. WILL CONT TO MONITOR.
--- NOTE | 2017-03-25 14:10 | NUR ---
IV MORPHINE GIVEN FOR C/O PAIN TO RIGHT KNEE OF 02/23. WILL CONT TO MONITOR. CALL LIGHT IN REACH.
[2017-03-25 16:00] VITALS: BP 103/66
--- NOTE | 2017-03-25 19:30 | NUR ---
ASSSUMED CARE OF PT AT THIS TIME, RESPS EASY AND NONLABORED WITH NO S/S OF DISTRESS CALL LIGHT WITH IN REACH
--- NOTE | 2017-03-25 19:57 | NUR ---
PT C/O PAIN IN RIGHT KNEE RATES PAIN 8/10, REQUESTED AND ADMINISTERED MORPHINE 4MG IV PRN PER ORDERS, WILL MONITOR EFFECTS
[2017-03-25 20:00] VITALS: BP 113/78
--- NOTE | 2017-03-25 20:57 | NUR ---
REPORTS THAT PAIN HAS DECREASED IN THE RIGHT KNEE, PRN MORPHINE 4MG EFFECTIVE AT THIS TIME.
[2017-03-26] VITALS: BP 115/86
--- NOTE | 2017-03-26 01:41 | NUR ---
PT REPORTS PAIN IN THE RIGHT KNEE, AND REQUESTED PRN PAIN MEDICATION, MORPHINE 4MG GIVEN ORDERED WILL MONITOR EFFECTS
--- NOTE | 2017-03-26 02:20 | NUR ---
PRN PAIN MEDICATION EFFECTIVE AT THIS TIME, PT REPORTS DECREASED PAIN LEVEL IN RIGHT KNEE, IMMOBILIZER IN PLACE, AND PT USING ICE PACKS
[2017-03-26 08:00] VITALS: BP 122/83
--- NOTE | 2017-03-26 08:39 | NUR ---
PT RESTING IN BED, PT C/O RIGHT KNEE PAIN. PT MEDICATED WITH MORPHINE, PT RATES PAIN 8/10. WILL MONITOR
--- NOTE | 2017-03-26 09:14 | NUR ---
PT STATES THAT MORPHINE HELPED . WILL MONITOR. CALL LIGHT WITHIN REACH
[2017-03-26] MEDS ORDERED: PERCOCET 5-3251 EACH PO (10:50)
[2017-03-26] MEDS ORDERED: Motrin,Rufen800 MG PO (10:57)
[2017-03-26] MEDS ORDERED: LISINOPRIL20 MG PO (10:57)
--- NOTE | 2017-03-26 11:48 | NUR ---
Discharge instructions reviewed with patient/family. Patient receptive and verbalizes understanding. Follow-up care arranged. Written instructions given to patient/family. NASRA JERONIMO
--- NOTE | 2017-03-27 07:54 | NUR ---
PHYSICAL THERAPY CO-SIGN I approve of the Phyical Therapy notes written above. KATHLEEN BAILEY PT
== END 2017-03-26 11:48 | disposition home or self-care (01) | DRG 101 ==
LOC: ED 21:19 → 4E 23:39 → EDHOLD 23:39 → ICCU 23:51 → 4E 03-22 13:39
PROVIDERS: Emergency Medicine Emergency Medical Services; Internal Medicine; ADMIT Internal Medicine
DX: G40.909 Epilepsy, unspecified, not intractable, without status epilepticus (principal); K70.10 Alcoholic hepatitis without ascites; E44.1 Mild protein-calorie malnutrition; F10.239 Alcohol dependence with withdrawal, unspecified; F20.9 Schizophrenia, unspecified; I10 Essential (primary) hypertension; E87.6 Hypokalemia; M25.561 Pain in right knee; F17.210 Nicotine dependence, cigarettes, uncomplicated; G89.29 Other chronic pain; M25.461 Effusion, right knee; E66.9 Obesity, unspecified; R74.0 Nonspecific elevation of levels of transaminase and lactic acid dehydrogenase [LDH]; E78.2 Mixed hyperlipidemia; Z79.899 Other long term (current) drug therapy; Z87.81 Personal history of (healed) traumatic fracture; Z68.34 Body mass index [BMI] 34.0-34.9, adult

== ENCOUNTER 2017-03-30 11:45 | Inpatient (IN) | payer OTHER ==
[~2017-03-30] VITALS: Ht 180.3 cm; Wt 108.4 kg
[2017-03-30] VITALS (7 sets, daily range): BP systolic 115–154; BP diastolic 71–108
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
[~2017-03-30 11:45] MED LIST changes: +LISINOPRIL20 MG PO; +Motrin,Rufen800 MG PO; +PERCOCET 5-3251 EACH PO
[2017-03-30 12:23] LABS: BASO % 0.8 % (0.0-1.0); EOS # 0.1 10*3/uL (0.0-0.4); EOS % 2.1 % (1.0-4.0); HEMATOCRIT 42.9 % (42.0-52.0); LYMPH # 1.7 10*3/uL (1.3-4.4); MEAN CELL VOLUME 88.5 fl (80.0-94.0); MEAN CORPUSCULAR HGB 28.9 pg (27.0-31.0); MEAN CORPUSCULAR HGB CONC 32.6 g/dl (33.0-37.0); MEAN PLATELET VOLUME 9.3 fl (9.6-12.3); MONO # 0.9 10*3/uL (0.1-1.0); MONO % 17.8 % (3.0-9.0); NEUT # 2.5 10*3/uL (2.3-7.9); NEUT % 47.1 % (47.0-73.0); PLATELET COUNT AUTOMATED 172 10*3/uL (130-400); RED BLOOD COUNT 4.85 10*6/uL (4.50-5.90); RED CELL DISTRI WIDTH 17.7 % (0-14.5); WHITE BLOOD COUNT 5.2 10*3/uL (4.8-10.8)
--- NOTE | 2017-03-30 12:26 | NUR ---
POISON CONTROL CALLED BY [facility]. STATES TO MONITOR AN WATCH FOR SEIZURE ACTIVITY. WILL FAX PAPERS
[2017-03-30 12:33] LABS: ACT PARTIAL THROMBO TIME 24.4 SECONDS (20.8-31.5); INTERNATIONAL NORM RATIO 0.9 (2.0-3.5)
[2017-03-30 12:35] LABS: BILIRUBIN NEGATIVE (NEGATIVE); BLOOD NEGATIVE (NEGATIVE); CLARITY CLEAR (CLEAR); COLOR YELLOW (YELLOW); GLUCOSE NEGATIVE (NEGATIVE); KETONE NEGATIVE (NEGATIVE); LEUKO ESTERASE NEGATIVE (NEGATIVE); NITRITE NEGATIVE (NEGATIVE); PH 5.5 (5.0-9.0); SPECIFIC GRAVITY 1.025 (1.005-1.030); UROBILINOGEN 0.2 E.U./dl (0.2-1.0)
[2017-03-30 12:40] LABS: ALBUMIN 3.5 gm/dl (3.1-4.5); ALKALINE PHOSPHATASE 84 U/L (45-117); BUN 26 mg/dl (7-24); CHLORIDE 107 mmol/L (98-107); CREATININE 0.88 mg/dL (0.70-1.30); LIPASE 288 U/L (73-393); MAGNESIUM 1.9 mg/dL (1.5-2.1); POTASSIUM 4.4 mmol/L (3.5-5.1); SGOT/AST 171 IU/L (3-35); SGPT/ALT 199 U/L (12-78); SODIUM 141 mmol/L (136-145); TOTAL PROTEIN 8.2 gm/dL (6.4-8.2)
[2017-03-30 12:44] LABS: URINE AMPHETAMINES < 1000 (1000ng/ml); URINE BARBITURATES < 200 (200ng/ml); URINE BENZODIAZEPINES < 200 (200ng/ml); URINE CANNABINOIDS (THC) < 50 (50ng/ml); URINE COCAINE < 300 (300ng/ml); URINE METHADONE < 300 (300ng/ml); URINE OPIATES < 300 (300ng/ml)
[2017-03-30 12:45] LABS: URINE PHENCYCLIDINE < 25 (25ng/ml)
[2017-03-30 12:45] LABS: ACETAMINOPHEN (TYLENOL) < 2.0 ug/ml (10-30); TROPONIN I < 0.015 ng/ml (<0.045)
--- NOTE | 2017-03-30 12:45 | NUR ---
A 46, admitted to ICCU, under the services of NATHALIA Ayoub DO with a diagnosis of DRUG OVERDOSE, SUICIDE ATTEMPT. Chief complaint is DRUG OVERDOSE. Patient arrived via ambulatory from ER. Monitor applied. Initial assessment completed. Vital signs taken and recorded. NATHALIA AYOUB DO notified of admission to the unit. Orders received. See assessment for past medical history, medications and allergies. Patient and/or family oriented to unit. [facility] ICCU visitation policy reviewed. Clothing/patient valuable form completed. CHAIM CUEVAS
[2017-03-30 12:46] LABS: ETHYL ALCOHOL < 3.0 mg/dl (<3)
--- NOTE | 2017-03-30 18:24 | NUR ---
PATIENT C/O NAUSEA. MEDICATED WITH ZOFRAN PER PRN ORDER. WILL CONTINUE TO MONITOR.
--- NOTE | 2017-03-30 19:23 | NUR ---
MESSAGE LEFT ON CELLPHONE REGARDING NEW CONSULT.
--- NOTE | 2017-03-30 20:18 | NUR ---
PT. RESTING IN BED. HEP LOCK ASYMPT. LUNGS CLEAR BUT DIMINISHED BILAT, PULSE OX 98% ON RA. ABDOEN SOFT NONDISTENDED AND NORMO. NO PERIPHERAL EDEMA NOTED. ADRIENNE PLUMMER RN
[2017-03-31] VITALS: BP 108/89
[2017-03-31 04:00] VITALS: BP 116/87
[2017-03-31 04:19] LABS: BASO # 0.1 10*3/uL (0.0-0.1); BASO % 1.1 % (0.0-1.0); EOS # 0.2 10*3/uL (0.0-0.4); EOS % 3.2 % (1.0-4.0); HEMATOCRIT 43.8 % (42.0-52.0); HEMOGLOBIN 14.1 g/dl (14.0-18.0); LYMPH # 1.8 10*3/uL (1.3-4.4); LYMPH % 32.6 % (27.0-41.0); MEAN CELL VOLUME 89.4 fl (80.0-94.0); MEAN CORPUSCULAR HGB 28.8 pg (27.0-31.0); MEAN CORPUSCULAR HGB CONC 32.2 g/dl (33.0-37.0); MEAN PLATELET VOLUME 9.7 fl (9.6-12.3); MONO % 17.6 % (3.0-9.0); NEUT # 2.6 10*3/uL (2.3-7.9); NEUT % 45.3 % (47.0-73.0); PLATELET COUNT AUTOMATED 169 10*3/uL (130-400); RED CELL DISTRI WIDTH 17.4 % (0-14.5); WHITE BLOOD COUNT 5.6 10*3/uL (4.8-10.8)
[2017-03-31 04:48] LABS: ALBUMIN 3.4 gm/dl (3.1-4.5); ALKALINE PHOSPHATASE 80 U/L (45-117); BUN 18 mg/dl (7-24); CHLORIDE 107 mmol/L (98-107); CREATININE 0.71 mg/dL (0.70-1.30); PHOSPHOROUS 3.5 mg/dL (2.5-4.9); POTASSIUM 4.5 mmol/L (3.5-5.1); SGOT/AST 143 IU/L (3-35); SGPT/ALT 178 U/L (12-78); SODIUM 139 mmol/L (136-145); TOTAL PROTEIN 8.1 gm/dL (6.4-8.2)
[2017-03-31 08:00] VITALS: BP 108/75
--- NOTE | 2017-03-31 10:14 | NUR ---
[facility] control called in . update given. Signed off.
--- NOTE | 2017-03-31 10:15 | NUR ---
Dr. Hernandez in to [facility].
--- NOTE | 2017-03-31 10:35 | NUR ---
Dr. Willett in to [facility]. Order fordischarge recieved. pending 1liter IVF.
[2017-03-31 11:23] VITALS: BP 122/83
--- NOTE | 2017-03-31 12:15 | NUR ---
IVF infused IV dc'd discharge instruction given. Voiced concern over lack of home meds re: OD. Referred to family physician. Voiced understanding of discharge instruction and discharged to home w/ spouse.
== END 2017-03-31 12:15 | disposition home or self-care (01) | DRG 918 ==
LOC: ED 11:45 → ICCU 12:11 → EDHOLD 12:11 → ICCU 12:39
PROVIDERS: Emergency Medicine; Hospitalist; ADMIT Internal Medicine
DX: T46.4X2A Poisoning by angiotensin-converting-enzyme inhibitors, intentional self-harm, initial encounter (principal); F33.9 Major depressive disorder, recurrent, unspecified; K76.0 Fatty (change of) liver, not elsewhere classified; I10 Essential (primary) hypertension; G40.909 Epilepsy, unspecified, not intractable, without status epilepticus; T39.312A Poisoning by propionic acid derivatives, intentional self-harm, initial encounter; T42.6X2A Poisoning by other antiepileptic and sedative-hypnotic drugs, intentional self-harm, initial encounter; M19.079 Primary osteoarthritis, unspecified ankle and foot; E66.01 Morbid (severe) obesity due to excess calories; E78.2 Mixed hyperlipidemia; F10.20 Alcohol dependence, uncomplicated; M23.91 Unspecified internal derangement of right knee; B19.20 Unspecified viral hepatitis C without hepatic coma; F17.210 Nicotine dependence, cigarettes, uncomplicated; Y92.098 Other place in other non-institutional residence as the place of occurrence of the external cause; Z79.899 Other long term (current) drug therapy; Z68.33 Body mass index [BMI] 33.0-33.9, adult

== ENCOUNTER → 2017-04-16 | Outpatient (CLI) | payer OTHER | END | disposition home or self-care (01) | LOC: MRI 10:22 | DX: S83.411A Sprain of medial collateral ligament of right knee, initial encounter (principal); S83.241A Other tear of medial meniscus, current injury, right knee, initial encounter; M22.41 Chondromalacia patellae, right knee; M25.461 Effusion, right knee; X58.XXXA Exposure to other specified factors, initial encounter; Y93.89 Activity, other specified; Y92.89 Other specified places as the place of occurrence of the external cause; Y99.8 Other external cause status ==

== ENCOUNTER → 2017-04-21 | Outpatient (CLI) | payer OTHER | LOC: ORTHO 01:51 | DX: S62.316D Displaced fracture of base of fifth metacarpal bone, right hand, subsequent encounter for fracture with routine healing (principal); X58.XXXD Exposure to other specified factors, subsequent encounter ==

== ENCOUNTER 2017-04-25 18:20 | Emergency (ER) | payer OTHER ==
[~2017-04-25] VITALS: Ht 180.3 cm; Wt 108.9 kg
[2017-04-25 19:50] LABS: BASO % 0.5 % (0.0-1.0); EOS # 0.2 10*3/uL (0.0-0.4); EOS % 2.1 % (1.0-4.0); HEMATOCRIT 43.2 % (42.0-52.0); HEMOGLOBIN 14.4 g/dl (14.0-18.0); LYMPH # 2.9 10*3/uL (1.3-4.4); LYMPH % 35.1 % (27.0-41.0); MEAN CELL VOLUME 87.3 fl (80.0-94.0); MEAN CORPUSCULAR HGB 29.1 pg (27.0-31.0); MEAN CORPUSCULAR HGB CONC 33.3 g/dl (33.0-37.0); MEAN PLATELET VOLUME 9.4 fl (9.6-12.3); MONO # 1.1 10*3/uL (0.1-1.0); MONO % 12.7 % (3.0-9.0); NEUT % 48.5 % (47.0-73.0); PLATELET COUNT AUTOMATED 178 10*3/uL (130-400); RED BLOOD COUNT 4.95 10*6/uL (4.50-5.90); RED CELL DISTRI WIDTH 17.9 % (0-14.5); WHITE BLOOD COUNT 8.3 10*3/uL (4.8-10.8)
[2017-04-25 20:23] LABS: BUN 18 mg/dl (7-24); CHLORIDE 104 mmol/L (98-107); SODIUM 138 mmol/L (136-145)
[2017-04-25 20:33] LABS: URINE AMPHETAMINES < 1000 (1000ng/ml); URINE BARBITURATES < 200 (200ng/ml); URINE BENZODIAZEPINES < 200 (200ng/ml); URINE CANNABINOIDS (THC) < 50 (50ng/ml); URINE COCAINE < 300 (300ng/ml); URINE METHADONE < 300 (300ng/ml); URINE OPIATES > 300 (300ng/ml); URINE PHENCYCLIDINE < 25 (25ng/ml)
== END 2017-04-25 21:15 | disposition home or self-care (01) ==
LOC: ED 18:20
PROVIDERS: Internal Medicine
DX: M79.1 Myalgia (principal); F17.200 Nicotine dependence, unspecified, uncomplicated; E66.01 Morbid (severe) obesity due to excess calories; I10 Essential (primary) hypertension; Z68.30 Body mass index [BMI] 30.0-30.9, adult

== ENCOUNTER → 2017-05-15 | Outpatient (CLI) | payer OTHER ==
[~2017-05-15] MED LIST changes: +VIMPAT200 MG PO
[2017-05-15 12:11] LABS: BASO % 0.8 % (0.0-1.0); BILIRUBIN NEGATIVE (NEGATIVE); BLOOD NEGATIVE (NEGATIVE); CLARITY CLEAR (CLEAR); COLOR YELLOW (YELLOW); EOS # 0.2 10*3/uL (0.0-0.4); EOS % 4.7 % (1.0-4.0); GLUCOSE NEGATIVE (NEGATIVE); KETONE NEGATIVE (NEGATIVE); LEUKO ESTERASE NEGATIVE (NEGATIVE); LYMPH # 1.8 10*3/uL (1.3-4.4); LYMPH % 36.1 % (27.0-41.0); MEAN CELL VOLUME 89.7 fl (80.0-94.0); MEAN CORPUSCULAR HGB 29.9 pg (27.0-31.0); MEAN CORPUSCULAR HGB CONC 33.3 g/dl (33.0-37.0); MONO # 0.7 10*3/uL (0.1-1.0); MONO % 13.5 % (3.0-9.0); NEUT # 2.2 10*3/uL (2.3-7.9); NEUT % 44.3 % (47.0-73.0); NITRITE NEGATIVE (NEGATIVE); PLATELET COUNT AUTOMATED 185 10*3/uL (130-400); RED BLOOD COUNT 4.68 10*6/uL (4.50-5.90); RED CELL DISTRI WIDTH 17.1 % (0-14.5); SPECIFIC GRAVITY 1.015 (1.005-1.030); UROBILINOGEN 0.2 E.U./dl (0.2-1.0); WHITE BLOOD COUNT 4.9 10*3/uL (4.8-10.8)
[2017-05-15 12:41] LABS: ALBUMIN 3.7 gm/dl (3.1-4.5); ALKALINE PHOSPHATASE 92 U/L (45-117); BUN 8 mg/dl (7-24); CHLORIDE 106 mmol/L (98-107); CREATININE 0.73 mg/dL (0.70-1.30); POTASSIUM 4.2 mmol/L (3.5-5.1); SGOT/AST 180 IU/L (3-35); SGPT/ALT 235 U/L (12-78); SODIUM 142 mmol/L (136-145); TOTAL PROTEIN 7.6 gm/dL (6.4-8.2)
[2017-05-15 13:02] LABS: EPITHELIAL CELLS 0-2; WBC 0-2 wbc/hpf (0-5)
== END | disposition home or self-care (01) ==
LOC: LAB 10:03
PROVIDERS: Orthopaedic Surgery
DX: Z01.818 Encounter for other preprocedural examination (principal); I10 Essential (primary) hypertension; S83.241A Other tear of medial meniscus, current injury, right knee, initial encounter; M22.41 Chondromalacia patellae, right knee; X58.XXXA Exposure to other specified factors, initial encounter; Z87.891 Personal history of nicotine dependence; Y93.89 Activity, other specified; Y92.89 Other specified places as the place of occurrence of the external cause; Y99.8 Other external cause status

== ENCOUNTER → 2017-05-19 | Outpatient (CLI) | payer OTHER | END | disposition home or self-care (01) | LOC: ORTHO 00:54 | DX: S62.306D Unspecified fracture of fifth metacarpal bone, right hand, subsequent encounter for fracture with routine healing (principal); X58.XXXD Exposure to other specified factors, subsequent encounter ==

== ENCOUNTER → 2017-05-22 | Day surgery (SDC) | payer OTHER ==
[2017-05-22] VITALS (7 sets, daily range): BP systolic 125–172; BP diastolic 94–115
[~2017-05-22] VITALS: Ht 180.3 cm; Wt 112.0 kg
[~2017-05-22] MED LIST changes: +Percocet 325 MG1 TAB PO; +ZOFRAN4 MG PO
== END | disposition home or self-care (01) ==
LOC: SDC 05-15 10:15
DX: S83.241D Other tear of medial meniscus, current injury, right knee, subsequent encounter (principal); S62.316D Displaced fracture of base of fifth metacarpal bone, right hand, subsequent encounter for fracture with routine healing; S83.281D Other tear of lateral meniscus, current injury, right knee, subsequent encounter; M22.41 Chondromalacia patellae, right knee; I10 Essential (primary) hypertension; J45.909 Unspecified asthma, uncomplicated; F17.210 Nicotine dependence, cigarettes, uncomplicated; Z98.890 Other specified postprocedural states; Z79.899 Other long term (current) drug therapy; Z88.8 Allergy status to other drugs, medicaments and biological substances; Z86.14 Personal history of Methicillin resistant Staphylococcus aureus infection; Z80.9 Family history of malignant neoplasm, unspecified; X58.XXXD Exposure to other specified factors, subsequent encounter

== ENCOUNTER → 2017-05-30 | Outpatient (CLI) | payer OTHER | LOC: ORTHO 02:47 | DX: S62.396D Other fracture of fifth metacarpal bone, right hand, subsequent encounter for fracture with routine healing (principal); X58.XXXD Exposure to other specified factors, subsequent encounter ==

== ENCOUNTER 2017-06-08 13:18 | Emergency (ER) | payer OTHER ==
[~2017-06-08] VITALS: Ht 180.3 cm; Wt 113.4 kg
[2017-06-08] MEDS ORDERED: NAPROSYN500 MG PO (13:41)
== END 2017-06-08 21:01 | disposition home or self-care (01) ==
LOC: ED 13:18
DX: S60.221A Contusion of right hand, initial encounter (principal); S60.211A Contusion of right wrist, initial encounter; F17.200 Nicotine dependence, unspecified, uncomplicated; F10.10 Alcohol abuse, uncomplicated; Z79.899 Other long term (current) drug therapy; W22.8XXA Striking against or struck by other objects, initial encounter; Y93.89 Activity, other specified; Y92.89 Other specified places as the place of occurrence of the external cause; Y99.8 Other external cause status

== ENCOUNTER 2017-06-25 01:42 | Emergency (ER) | payer OTHER ==
[~2017-06-25] VITALS: Ht 154.9 cm; Wt 113.4 kg
[2017-06-25] MEDS ORDERED: LEVAQUIN750 M1 PO (02:27)
[2017-06-25] MEDS ORDERED: PREDNISONE50 MG PO (02:27)
== END 2017-06-25 02:52 | disposition home or self-care (01) ==
LOC: ED 01:42
DX: R05 Cough (principal); I10 Essential (primary) hypertension; E78.00 Pure hypercholesterolemia, unspecified; F10.10 Alcohol abuse, uncomplicated; Z68.34 Body mass index [BMI] 34.0-34.9, adult; Z79.899 Other long term (current) drug therapy

== ENCOUNTER 2017-07-05 06:57 | Emergency (ER) | payer OTHER ==
[~2017-07-05] VITALS: Ht 154.9 cm; Wt 113.4 kg
[~2017-07-05 06:57] MED LIST changes: +LEVAQUIN750 M1 PO; +PREDNISONE50 MG PO
== END 2017-07-05 08:03 | disposition home or self-care (01) ==
LOC: ED 06:57
DX: S90.111A Contusion of right great toe without damage to nail, initial encounter (principal); S90.31XA Contusion of right foot, initial encounter; F17.200 Nicotine dependence, unspecified, uncomplicated; I10 Essential (primary) hypertension; E78.00 Pure hypercholesterolemia, unspecified; E66.01 Morbid (severe) obesity due to excess calories; Z98.890 Other specified postprocedural states; Z68.34 Body mass index [BMI] 34.0-34.9, adult; Z79.899 Other long term (current) drug therapy; W20.8XXA Other cause of strike by thrown, projected or falling object, initial encounter; Y93.89 Activity, other specified; Y92.89 Other specified places as the place of occurrence of the external cause; Y99.9 Unspecified external cause status

== ENCOUNTER 2017-08-06 18:57 | Emergency (ER) | payer OTHER ==
[~2017-08-06] VITALS: Wt 117.9 kg
[2017-08-06 20:50] LABS: BASO # 0.1 10*3/uL (0.0-0.1); BASO % 0.9 % (0.0-1.0); EOS # 0.1 10*3/uL (0.0-0.4); EOS % 1.1 % (1.0-4.0); HEMATOCRIT 40.5 % (42.0-52.0); HEMOGLOBIN 13.6 g/dl (14.0-18.0); LYMPH # 2.7 10*3/uL (1.3-4.4); LYMPH % 41.6 % (27.0-41.0); MEAN CELL VOLUME 86.7 fl (80.0-94.0); MEAN CORPUSCULAR HGB 29.1 pg (27.0-31.0); MEAN CORPUSCULAR HGB CONC 33.6 g/dl (33.0-37.0); MEAN PLATELET VOLUME 9.8 fl (9.6-12.3); MONO # 0.7 10*3/uL (0.1-1.0); MONO % 11.4 % (3.0-9.0); NEUT # 2.9 10*3/uL (2.3-7.9); NEUT % 44.7 % (47.0-73.0); PLATELET COUNT AUTOMATED 296 10*3/uL (130-400); RED BLOOD COUNT 4.67 10*6/uL (4.50-5.90); WHITE BLOOD COUNT 6.5 10*3/uL (4.8-10.8)
[2017-08-06 21:06] LABS: ALBUMIN 4.1 gm/dl (3.1-4.5); ALKALINE PHOSPHATASE 92 U/L (45-117); BUN 9 mg/dl (7-24); CHLORIDE 105 mmol/L (98-107); POTASSIUM 3.9 mmol/L (3.5-5.1); SGOT/AST 220 IU/L (3-35); SGPT/ALT 229 U/L (12-78); SODIUM 141 mmol/L (136-145); TOTAL PROTEIN 8.6 gm/dL (6.4-8.2)
[2017-08-06 21:12] LABS: ACETAMINOPHEN (TYLENOL) < 2.0 ug/ml (10-30)
[2017-08-06 21:13] LABS: BILIRUBIN NEGATIVE (NEGATIVE); BLOOD NEGATIVE (NEGATIVE); CLARITY CLEAR (CLEAR); COLOR YELLOW (YELLOW); GLUCOSE NEGATIVE (NEGATIVE); KETONE NEGATIVE (NEGATIVE); LEUKO ESTERASE NEGATIVE (NEGATIVE); NITRITE NEGATIVE (NEGATIVE); SPECIFIC GRAVITY <= 1.005 (1.005-1.030); UROBILINOGEN 0.2 E.U./dl (0.2-1.0)
[2017-08-06 21:17] LABS: URINE AMPHETAMINES < 1000 (1000ng/ml); URINE BARBITURATES < 200 (200ng/ml); URINE BENZODIAZEPINES < 200 (200ng/ml); URINE CANNABINOIDS (THC) < 50 (50ng/ml); URINE COCAINE < 300 (300ng/ml); URINE METHADONE < 300 (300ng/ml); URINE OPIATES < 300 (300ng/ml); URINE PHENCYCLIDINE < 25 (25ng/ml)
[2017-08-06 21:25] LABS: RBC 0-2 rbc/hpf (0-2)
== END 2017-08-07 00:11 | disposition short-term general hospital (02) ==
LOC: ED 18:57
PROVIDERS: Emergency Medicine Emergency Medical Services
DX: F10.129 Alcohol abuse with intoxication, unspecified (principal); G40.909 Epilepsy, unspecified, not intractable, without status epilepticus; F17.200 Nicotine dependence, unspecified, uncomplicated; I10 Essential (primary) hypertension; E78.00 Pure hypercholesterolemia, unspecified; E66.01 Morbid (severe) obesity due to excess calories; Z68.34 Body mass index [BMI] 34.0-34.9, adult; Z98.890 Other specified postprocedural states; Z79.899 Other long term (current) drug therapy; Y90.9 Presence of alcohol in blood, level not specified

== ENCOUNTER 2017-09-29 16:02 | Emergency (ER) | payer OTHER ==
[2017-09-29] MEDS ORDERED: NAPROSYN500 MG PO (17:30)
== END 2017-09-29 17:34 | disposition home or self-care (01) ==
LOC: ED
DX: M25.561 Pain in right knee (principal); F17.200 Nicotine dependence, unspecified, uncomplicated; I10 Essential (primary) hypertension; E78.00 Pure hypercholesterolemia, unspecified; E66.01 Morbid (severe) obesity due to excess calories; G40.909 Epilepsy, unspecified, not intractable, without status epilepticus; Z98.890 Other specified postprocedural states; Z68.34 Body mass index [BMI] 34.0-34.9, adult; Z79.899 Other long term (current) drug therapy; X50.1XXA Overexertion from prolonged static or awkward postures, initial encounter; Y93.01 Activity, walking, marching and hiking; Y92.099 Unspecified place in other non-institutional residence as the place of occurrence of the external cause; Y99.9 Unspecified external cause status

== ENCOUNTER → 2017-10-28 | Outpatient (CLI) | payer OTHER ==
[2017-10-28 07:59] LABS: ALBUMIN 3.7 gm/dl (3.1-4.5); BILIRUBIN, DIRECT 0.2 mg/dL (0.0-0.2); TOTAL PROTEIN 8.1 gm/dL (6.4-8.2)
[2017-10-29 11:26] LABS: HEPATITIS B SURFACE AG Negative (Negative)
[2017-10-30 14:24] LABS: HEPATITIS C VIRUS ANTIBODY >11.0 s/co (0.0-0.9)
== END | disposition home or self-care (01) ==
LOC: LAB 07:00 → US 07:30
PROVIDERS: Internal Medicine Gastroenterology
DX: K76.0 Fatty (change of) liver, not elsewhere classified (principal); B19.20 Unspecified viral hepatitis C without hepatic coma; R79.89 Other specified abnormal findings of blood chemistry

== ENCOUNTER 2018-01-10 17:59 | Emergency (ER) | payer OTHER ==
[~2018-01-10] VITALS: Ht 177.8 cm; Wt 108.9 kg
== END 2018-01-10 19:00 | disposition left against medical advice (07) ==
LOC: ED 17:59
DX: S01.01XA Laceration without foreign body of scalp, initial encounter (principal); R56.9 Unspecified convulsions; W18.30XA Fall on same level, unspecified, initial encounter; Y93.01 Activity, walking, marching and hiking; Y92.099 Unspecified place in other non-institutional residence as the place of occurrence of the external cause; Y99.8 Other external cause status

== ENCOUNTER → 2018-02-11 | Outpatient (CLI) | payer OTHER | END | disposition home or self-care (01) | LOC: RAD 10:50 | DX: M54.5 Low back pain (principal) ==

== ENCOUNTER → 2018-03-02 | Outpatient (CLI) | payer OTHER | END | disposition home or self-care (01) | LOC: RAD 12:51 | DX: M51.36 Other intervertebral disc degeneration, lumbar region (principal); M47.896 Other spondylosis, lumbar region; Z87.39 Personal history of other diseases of the musculoskeletal system and connective tissue ==

== ENCOUNTER → 2018-04-01 | Outpatient (CLI) | payer OTHER | END | disposition home or self-care (01) | LOC: ORTHO 04:17 | DX: M25.552 Pain in left hip (principal); Z91.81 History of falling ==

== ENCOUNTER → 2018-04-15 | Outpatient (CLI) | payer OTHER | END | disposition home or self-care (01) | LOC: CT 09:47 | DX: M25.552 Pain in left hip (principal) ==

== ENCOUNTER → 2018-06-17 | Outpatient (CLI) | payer OTHER | END | disposition home or self-care (01) | LOC: ORTHO 00:49 | DX: M79.642 Pain in left hand (principal); M25.442 Effusion, left hand ==